=== PATIENT | male | born 1980 ===

== ENCOUNTER 2017-05-21 14:18 | Emergency (ER) | payer OTHER ==
[2017-05-21 14:24] VITALS: BP 152/73; PULSE 66; RESP 16; TEMP 97; O2SAT 100
[2017-05-21] MEDS ORDERED: Naproxen 500 MG TAB PO STA (14:41)
--- NOTE | 2017-05-21 14:47 | ED PDOC ---
HPI: Back Time Seen by Provider: 05/21/17 14:35 Chief Complaint (Nursing): Back Pain Chief Complaint (Provider): Back pain History Per: Patient History/Exam Limitations: no limitations Onset/Duration Of Symptoms: Days (3x) Current Symptoms Are (Timing): Still Present Quality Of Discomfort: "Pain" Severity: Moderate Associated Symptoms: None Exacerbating Factor(s): Movement, Other (coughing) Additional Complaint(s): 37 year old male with no pertinent medical history presents to the ED with complaints of left sided back pain that started 3x days ago while he was running. He reports that he does heavy lifting at work, and the pain worsens with movement and coughing. Patient denies having fevers and chills. PMD: Not provided. Past Medical History Reviewed: Historical Data, Nursing Documentation, Vital Signs Vital Signs: Last Vital Signs Temp 97.0 F L 05/21/17 14:21 Pulse 66 05/21/17 14:21 Resp 16 05/21/17 14:21 BP 152/73 H 05/21/17 14:21 Pulse Ox 100 05/21/17 14:21 - Medical History PMH: No Chronic Diseases - Surgical History Surgical History: No Surg Hx - Family History Family History: States: No Known Family Hx - Social History Current smoker - smoking cessation education provided: No Alcohol: None Drugs: Denies - Home Medications Home Medications: Ambulatory Orders Medication Instructions Recorded Naproxen 1 tab PO BID PRN #14 tab 05/21/17 - Allergies Allergies/Adverse Reactions: Allergies Allergy/AdvReac Type Severity Reaction Status Date / Time No Known Allergies Allergy Verified 05/21/17 14:21 Review of Systems ROS Statement: Except As Marked, All Systems Reviewed And Found Negative Constitutional: Negative for: Fever, Chills Musculoskeletal: Positive for: Back Pain (left sided) Physical Exam - Reviewed Nursing Documentation Reviewed: Yes Vital Signs Reviewed: Yes - Physical Exam Appears: Positive for: Well, Non-toxic, No Acute Distress Head Exam: Positive for: ATRAUMATIC, NORMOCEPHALIC Skin: Positive for: Normal Color, Warm, Dry Eye Exam: Positive for: Normal appearance Neck: Positive for: Normal Cardiovascular/Chest: Positive for: Regular Rate, Rhythm Respiratory: Positive for: Normal Breath Sounds. Negative for: Respiratory Distress Neurologic/Psych: Positive for: Alert, Oriented (3x) - ECG O2 Sat by Pulse Oximetry: 100 (RA) Pulse Ox Interpretation: Normal - Progress ED Course And Treament: CXR: NAD NAPROXEN 500MG X 1 DOSE Medical Decision Making Medical Decision Makin:35 Initial impression: 37 year old male with left sided back pain. Initial plan: * XRay chest 2 views * Naproxen 500mg PO * reevaluation Scribe Attestation: Documented by Marisa Kincaid, acting as a scribe for Clint Stinson PA-C. Provider Scribe Attestation: All medical record entries made by the Scribe were at my direction and personally dictated by me. I have reviewed the chart and agree that the record accurately reflects my personal performance of the history, physical exam, medical decision making, and the department course for this patient. I have also personally directed, reviewed, and agree with the discharge instructions and disposition. Disposition - Clinical Impression Clinical Impression: Back strain - Patient ED Disposition Is Patient to be Admitted: No - Disposition Referrals: [facility] [Outside] Disposition: Routine/Home Disposition Time: 15:30 Condition: FAIR Prescriptions: Naproxen 1 tab PO BID PRN #14 tab PRN Reason: Pain, Moderate (4-7) Instructions: Thoracic Back Strain (ED) Forms: Scan (Mohawk) Print Language: MOHAWK
[2017-05-21] MEDS ORDERED: Naproxen 500 MG TAB PO ONE (15:12)
--- NOTE | 2017-05-21 15:18 | RAD ---
HISTORY: THORACIC PAIN AFTER RUNNING COMPARISON: No prior. TECHNIQUE: Chest PA and lateral FINDINGS: LUNGS: No active pulmonary disease. PLEURA: No significant pleural effusion identified. No pneumothorax apparent. CARDIOVASCULAR: Normal. OSSEOUS STRUCTURES: No significant abnormalities. VISUALIZED UPPER ABDOMEN: Normal. OTHER FINDINGS: None. IMPRESSION: No active disease.
== END 2017-05-21 16:11 | disposition home or self-care (01) ==
LOC: H.ER 14:18
DX: S39.012A Strain of muscle, fascia and tendon of lower back, initial encounter (principal); X50.9XXA Other and unspecified overexertion or strenuous movements or postures, initial encounter; Y92.89 Other specified places as the place of occurrence of the external cause